=== PATIENT | female | born 1960 | race Caucasian/White ===

== ENCOUNTER 2022-03-27 08:52 | Emergency (ER) | payer OTHER, SELFPAY ==
[2022-03-27 09:02] VITALS: BP 149/97; PULSE 90; RESP 16; TEMP 37.9; O2SAT 98
--- NOTE | 2022-03-27 09:13 | ED.URI ---
HPI - URI/Sore Throat General Chief Complaint: Upper Respiratory Infection Stated Complaint: Congestion,Cough Time Seen by Provider: 03/27/22 09:13 Source: patient Mode of arrival: ambulatory Limitations: no limitations History of Present Illness HPI Narrative: 61-year-old female presents with complaint of nasal congestion, body aches, fatigue, headaches, cough for 2 to 3 days. Afebrile. Thinks that she is getting bronchitis. Denies shortness of breath. No wheezing. Took an [id number] cold and flu medication last night. Called in last 2 days to work and needs a work note. Took 2 home negative COVID test. All systems reviewed and negative except as noted above. Related Data Allergies Allergy/AdvReac Type Severity Reaction Status Date / Time codeine Allergy Unknown Headache Verified 03/13/22 08:58 Review of Systems Review of Systems: CONSTITUTIONAL: Denies fever, chills, or sweats. Reports fatigue. EYES: Denies visual changes, redness, or discharge. ENT: Reports rhinorrhea, congestion. Denies sore throat, or otalgia. CARDIOVASCULAR: Denies chest pain, palpitations, or edema. RESPIRATORY: Reports cough. Denies dyspnea. GASTROINTESTINAL: Denies abdominal pain, nausea, vomiting, or diarrhea. GENITOURINARY: Denies dysuria or hematuria. SKIN: Denies rash or itching. MUSCULOSKELETAL: Denies back pain, joint pain, or myalgia. NEUROLOGIC: Reports headache. Denies numbness, or weakness. PSYCHIATRIC: Denies anxiety or depression. All other systems reviewed are negative, except as documented in HPI. PMFSH Family History Family History Other Diabetes mellitus Family history of arthritis Hypertension Social History Social History Smoking status: Never smoker Second hand tobacco smoke exposure: No Alcohol intake: current Substance use: never Substance use type: does not use Comments At time of signature, agree with nursing past medical, surgical, social and family history. There is no relevant family history pertinent to the presenting complaint. Exam Narrative: GENERAL: This is a well-nourished, well-developed patient, in no apparent distress. HEAD: normocephalic, atraumatic. EYES: PERRL. Sclera clear/white. Vision is grossly intact. EARS: External ears normal, auditory canals clear and without drainage, TMs normal without perforation. Hearing grossly intact. NOSE: External nose normal with clear nasal drainage, moderate congestion. No sinus tenderness. THROAT: Mucous membranes moist, posterior pharynx clear. NECK: Neck supple, non-tender without lymphadenopathy, masses or thyromegaly. CARDIOVASCULAR: Regular rate and rhythm without murmurs, gallops, or rubs. RESPIRATORY: Clear to auscultation. Breath sounds equal bilaterally. No wheezes, rales, or rhonchi. SKIN: warm, Dry, intact with no suspicious lesions or rash, good texture and turgor. NEURO: awake, alert, and oriented to person, place and time. There were no obvious focal neurologic abnormalities. EXTREMITIES: Normal range of motion to all extremities. Course Course Level of Care: Express Care Visit Vital Signs Vital signs: Vital Signs Temperature 37.9 C H 03/27/22 09:02 Pulse Rate 90 03/27/22 09:02 Respiratory Rate 16 03/27/22 09:02 Blood Pressure 149/97 H 03/27/22 09:02 Pulse Oximetry 98 03/27/22 09:02 Temperature 37.9 C H 03/27/22 09:02 Pulse Rate 90 03/27/22 09:02 Respiratory Rate 16 03/27/22 09:02 Blood Pressure 149/97 H 03/27/22 09:02 Pulse Oximetry 98 03/27/22 09:02 Reviewed MDM - URI/Sore Throat MDM Narrative Medical decision making narrative: Patient is aware of diagnosis, understands and agrees to treatment plan. Anticipatory guidance given. Patient agrees to follow-up as directed and is aware of reasons to seek care at the emergency department. Portions of this record may have been
== END 2022-03-27 09:40 | disposition home or self-care (01) ==
PROVIDERS: Emergency Provider Nurse Practitioner Family; PCP Internal Medicine
DX: J06.9 Acute upper respiratory infection, unspecified (principal); K21.9 Gastro-esophageal reflux disease without esophagitis
CPT/HCPCS: 99213; G0463

== ENCOUNTER 2022-04-17 09:36 | Emergency (ER) | payer OTHER, SELFPAY ==
--- NOTE | ~2022-04-17 | XR_ITS ---
XR tibia fibula RT 2V 04/17/2022 10:36 INDICATION: Leg pain after recent fall PROCEDURE: 2 views right tibia/fibula COMPARISON: No prior studies for comparison. FINDINGS: Fracture, dislocation or subluxation is not identified. There is mild osteoarthritis of the knee. The soft tissues appear within normal limits. No foreign bodies are identified. IMPRESSION: 1: NO ACUTE BONE OR JOINT ABNORMALITY IDENTIFIED. Reviewed, dictated and finalized at location B.
[2022-04-17 09:45] VITALS: BP 152/88; PULSE 82; RESP 18; TEMP 37.1; O2SAT 99
--- NOTE | 2022-04-17 10:20 | ED.LOWEXIN ---
HPI - Extremity Injury (Lower) General Chief Complaint: Extremity Injury, Lower Stated Complaint: right leg pain Time Seen by Provider: 04/17/22 10:20 Source: patient Mode of arrival: ambulatory Limitations: no limitations History of Present Illness HPI Narrative: 61-year-old female presents with complaint of pain to the right calf area for approximately 5 days. States that she was carrying her dog up deck stairs and tripped and right leg went backwards against a deck step very hard . [facility] and was told she had a pulled muscle. States that she has not been able to work for several days and now needs a work note. Is taking ibuprofen with little relief. Is concerned may be more than pulled muscle due to amount of pain. Patient is ambulatory with steady gait. Range of motion and distal neurovascularly intact. All systems reviewed and negative except as noted above. Related Data Allergies Allergy/AdvReac Type Severity Reaction Status Date / Time codeine Allergy Unknown Headache Verified 03/13/22 08:58 Review of Systems Review of Systems: CONSTITUTIONAL: Denies fever, chills, or sweats. EYES: Denies visual changes, redness, or discharge. ENT: Denies rhinorrhea, congestion, sore throat, or otalgia. CARDIOVASCULAR: Denies chest pain, palpitations, or edema. RESPIRATORY: Denies cough or dyspnea. GASTROINTESTINAL: Denies abdominal pain, nausea, vomiting, or diarrhea. GENITOURINARY: Denies dysuria or hematuria. SKIN: Denies rash or itching. MUSCULOSKELETAL: Denies back pain, joint pain, or myalgia. Reports pain to right calf. NEUROLOGIC: Denies headache, numbness, or weakness. PSYCHIATRIC: Denies anxiety or depression. All other systems reviewed are negative, except as documented in HPI. [facility] Family History Family History Other Diabetes mellitus Family history of arthritis Hypertension Social History Social History Smoking status: Never smoker Second hand tobacco smoke exposure: No Alcohol intake: current Substance use: never Substance use type: does not use Comments At time of signature, agree with nursing past medical, surgical, social and family history. There is no relevant family history pertinent to the presenting complaint. Exam Narrative: GENERAL: This is a well-nourished, well-developed patient, in no apparent distress. HEAD: normocephalic, atraumatic. EYES: PERRL. Sclera clear/white. Vision is grossly intact. EARS: External ears normal NOSE: External nose normal NECK: Neck supple, non-tender without lymphadenopathy, masses or thyromegaly. CARDIOVASCULAR: Regular rate and rhythm without murmurs, gallops, or rubs. RESPIRATORY: Clear to auscultation. Breath sounds equal bilaterally. No wheezes, rales, or rhonchi. SKIN: warm, Dry, intact with no suspicious lesions or rash, good texture and turgor. NEURO: awake, alert, and oriented to person, place and time. There were no obvious focal neurologic abnormalities. EXTREMITIES: Tenderness, bruising, mild swelling to posterior right lower leg. Normal range of motion to all extremities. Course Course Level of Care: Express Care Visit Vital Signs Vital signs: Vital Signs Temperature 37.1 C 04/17/22 09:45 Pulse Rate 82 04/17/22 09:45 Respiratory Rate 18 04/17/22 09:45 Blood Pressure 152/88 H 04/17/22 09:45 Pulse Oximetry 99 04/17/22 09:45 Oxygen Delivery Room Air 04/17/22 09:45 Temperature 37.1 C 04/17/22 09:45 Pulse Rate 82 04/17/22 09:45 Respiratory Rate 18 04/17/22 09:45 Blood Pressure 152/88 H 04/17/22 09:45 Pulse Oximetry 99 04/17/22 09:45 Oxygen Delivery Room Air 04/17/22 09:45 Reviewed MDM - Extremity Injury (Lower) MDM Narrative Medical decision making narrative: Patient is aware of diagnosis, understands and agrees to treatment plan. Ant
== END 2022-04-17 10:53 | disposition home or self-care (01) ==
PROVIDERS: Emergency Provider Nurse Practitioner Family; PCP Internal Medicine
DX: S86.311A Strain of muscle(s) and tendon(s) of peroneal muscle group at lower leg level, right leg, initial encounter (principal); W10.9XXA Fall (on) (from) unspecified stairs and steps, initial encounter
CPT/HCPCS: 73590; 99213; G0463

== ENCOUNTER 2023-04-01 07:39 | Day surgery (SDC) | payer OTHER, SELFPAY ==
[2023-02-08 10:12] VITALS: BMI 28.8
[2023-03-16 10:34] VITALS: BMI 27.8
--- NOTE | 2023-03-31 15:19 | PM.HPGS ---
History of Present Illness History of Present Illness Consent: Risks, benefits, and alternatives have been discussed and questions answered. Patient agrees to proceed with procedure. Chief complaint: Neoplasm Screening Narrative: Jennie Colon is a 62 year old female referred for colon cancer screening. Her father had colon cancer. This is her 1st colonoscopy. Review of Systems Review of Systems: All systems reviewed & are unremarkable except as noted in HPI and below PMFSH Past Medical History Medical History Attention-deficit hyperactivity disorder, unspecified type Chronic GERD Major depressive disorder, single episode, in partial remission Migraine, unspecified, not intractable, without status migrainosus Other and unspecified hyperlipidemia Other asthma Phobic anxiety disorder, unspecified (06/13/19) Surgical History Surgical History H/O total hysterectomy Family History Family History Other Diabetes mellitus Family history of arthritis Hypertension Social History Social History Smoking status: Never smoker Second hand tobacco smoke exposure: No Alcohol intake: current Substance use: never Substance use type: does not use Living arrangements: with family Spiritual care concerns: No Meds Home Medications and Allergies Home Medications Medication Instructions Recorded Confirmed Type albuterol sulfate 90 mcg/actuation 2 puff inhalation QID PRN 03/27/22 04/01/23 Rx aerosol inhaler shortness of breath or wheezing #8.5 grams raloxifene 60 mg tablet 60 mg PO DAILY #30 tabs 07/31/22 04/01/23 Rx bupropion HCl 300 mg 24 hr tablet, 300 mg PO QAM #30 tabs 11/25/22 04/01/23 Rx extended release (Wellbutrin XL) sumatriptan succinate 100 mg tablet See Rx Instructions .Route 11/26/22 04/01/23 Rx .COMPLEX #9 tabs alprazolam 0.25 mg tablet (Xanax) 0.25 mg PO BID #40 tabs 02/01/23 04/01/23 Rx montelukast 10 mg tablet 10 mg PO DAILY PRN Allergy Symptoms 02/01/23 04/01/23 History (Singulair) ibuprofen 800 mg tablet See Rx Instructions .Route 02/03/23 04/01/23 Rx .COMPLEX #60 tabs dextroamphetamine-amphetamine 30 30 mg PO BID #60 tabs 03/12/23 04/01/23 Rx mg tablet (Adderall) Allergies Allergy/AdvReac Type Severity Reaction Status Date / Time codeine AdvReac Unknown Headache Verified 04/01/23 08:17 Exam Resp: Auscultation: clear to auscultation bilaterally Cardio: Rate: regular rate Rhythm: regular rhythm GI: GI Palp: Yes Soft to palpation and No Tenderness to palpation present (GI) Assessment and Plan Assessment and plan (1) Colon cancer screening: Code(s): Z12.11 - Encounter for screening for malignant neoplasm of colon Status: Acute Assessment and Plan: Colonoscopy with possible biopsy or polypectomy or cautery or injection of substances.
[2023-04-01 08:22] VITALS: BMI 28.2
--- NOTE | 2023-04-01 08:49 | P.PNAN_ITS ---
Anes - Initial Pre Proc Eval Procedure: Operation Date: 04/01/23 09:30 Proposed Procedures p Screening Colonoscopy - Tony Palencia MD Date/Time: 04/01/23 08:49 Surgeon: Tony Palencia MD Pre Op Diagnosis: Neoplasm Screening Patient Data Age: 62 Gender: F Height: 1.5 m Weight: 63.4 kg Allergies Allergy/AdvReac Type Severity Reaction Status Date / Time codeine AdvReac Unknown Headache Verified 04/01/23 08:17 Home Medications Medication Instructions Recorded Confirmed Type albuterol sulfate 90 mcg/actuation 2 puff inhalation QID PRN 03/27/22 04/01/23 Rx aerosol inhaler shortness of breath or wheezing #8.5 grams raloxifene 60 mg tablet 60 mg PO DAILY #30 tabs 07/31/22 04/01/23 Rx bupropion HCl 300 mg 24 hr tablet, 300 mg PO QAM #30 tabs 11/25/22 04/01/23 Rx extended release (Wellbutrin XL) sumatriptan succinate 100 mg tablet See Rx Instructions .Route 11/26/22 04/01/23 Rx .COMPLEX #9 tabs alprazolam 0.25 mg tablet (Xanax) 0.25 mg PO BID #40 tabs 02/01/23 04/01/23 Rx montelukast 10 mg tablet 10 mg PO DAILY PRN Allergy Symptoms 02/01/23 04/01/23 History (Singulair) ibuprofen 800 mg tablet See Rx Instructions .Route 02/03/23 04/01/23 Rx .COMPLEX #60 tabs dextroamphetamine-amphetamine 30 30 mg PO BID #60 tabs 03/12/23 04/01/23 Rx mg tablet (Adderall) Patient hx anesthesia problems: none Family hx anesthesia problems: none Results Review: All pre-operative results and documents have been reviewed as part of the pre- operative evaluation. [facility] Past Medical History Medical History Attention-deficit hyperactivity disorder, unspecified type Chronic GERD Major depressive disorder, single episode, in partial remission Migraine, unspecified, not intractable, without status migrainosus Other and unspecified hyperlipidemia Other asthma Phobic anxiety disorder, unspecified (06/13/19) Surgical History Surgical History H/O total hysterectomy Family History Family History Other Diabetes mellitus Family history of arthritis Hypertension Social History Social History Smoking status: Never smoker Second hand tobacco smoke exposure: No Alcohol intake: current Substance use: never Substance use type: does not use Living arrangements: with family Spiritual care concerns: No Anes - Eval Final PreProcedure Day of Procedure 04/01/23 08:49 Patient weight: overweight Heart: regular rate and rhythm Lungs: clear to auscultation Airway: Mallampati scale class II Neurological: alert and oriented Last oral intake: >/= 8 hours ASA classification: III Emergent: no Anesthetic plan: proceed Anesthesia type and monitoring: general GIVS and standard monitoring Results Review: All pre-operative results and documents have been reviewed as part of the pre- operative evaluation. Informed Consent: The patient's anesthetic plan and its attendant risks and benefits were discussed with the patient/family/POA. Questions were solicited and answers provided to the satisfaction of the patient/family/POA.
[2023-04-01 09:08] VITALS: BP 163/86; PULSE 67; RESP 16; TEMP 37.1; O2SAT 100
[2023-04-01] MEDS: LACTATED RINGERS 1,000 ML 150 ML IV CONT (09:10)
[2023-04-01 10:02] VITALS: BP 100/69; PULSE 81; RESP 16; O2SAT 100
[2023-04-01 10:12] VITALS: BP 101/65; PULSE 70; RESP 16; O2SAT 98
--- NOTE | 2023-04-01 10:15 | WPDANESPN ---
Anes - Prog Note Post-Op Date/Time: 04/01/23 10:15 Cardiovascular status: normal Respiratory status: normal Airway patency: baseline Mental status: baseline Post-Op hydration status: normal Vital Signs: Last Vital Signs Temp 37.1 C 04/01/23 09:08 Pulse 67 04/01/23 09:08 Resp 16 04/01/23 09:08 BP 163/86 H 04/01/23 09:08 Pulse Ox 100 04/01/23 09:08 O2 Del Method Room Air 04/01/23 09:08 Pain Score (VAS): 0/10 I/O: Intake & Output 03/31/23 04/01/23 04/01/23 23:59 07:59 15:59 Intake Total 300 Balance 300 Patient Feedback: Patient satisfied with anesthetic care.
[2023-04-01 10:22] VITALS: BP 129/77; PULSE 60; RESP 14; O2SAT 100
== END 2023-04-01 10:42 | disposition home or self-care (01) ==
PROVIDERS: PCP Internal Medicine; Visit Provider Internal Medicine Gastroenterology
PROC: 0DJD8ZZ Inspection of Lower Intestinal Tract, Via Natural or Artificial Opening Endoscopic (ICD-10-PCS; CPT 45378; principal; 2023-04-01 09:30)
DX: Z12.11 Encounter for screening for malignant neoplasm of colon (principal)
CPT/HCPCS: 45378